=== PATIENT | female | born 1970 | race Caucasian/White ===

== ENCOUNTER 2021-10-30 10:56 | Day surgery (SDC) | payer OTHER ==
[2021-10-27 12:14] LABS: COVID AG,FIA SOURCE NASAL SWAB
[~2021-10-30] VITALS: Ht 165.1 cm; Wt 132.4 kg
[~2021-10-30 10:56] MED LIST: ASCO500 PO; CALC250T2 PO; CELE200 PO; CETI-450 PO; CHOL200059 PO; CYAN500T56 PO; FERR325T27 PO; GABA-1181 PO; MULT-1366 PO; OXYB5TAB20 PO; SODIUM CHLORIDE 0.9% 1,000 ML ONE
[2021-10-30] MEDS ORDERED: SODIUM CHLORIDE 0.9% 1,000 ML IV ONE (11:00)
[2021-10-30] MEDS ORDERED: LIDOCAINE/PF 2% 5 ML VIAL IM ONE (12:00)
[2021-10-30] MEDS ORDERED: PROPOFOL 1% 20 ML VIAL IVP ONE (12:00)
== END 2021-10-30 14:35 | disposition home or self-care (01) ==
LOC: SURGERY 10:56
PROVIDERS: ATTEND Internal Medicine Gastroenterology
DX: D64.9 Anemia, unspecified (principal); K64.0 First degree hemorrhoids; K29.70 Gastritis, unspecified, without bleeding; K31.4 Gastric diverticulum; M19.90 Unspecified osteoarthritis, unspecified site; Z79.899 Other long term (current) drug therapy; G89.29 Other chronic pain; Z90.49 Acquired absence of other specified parts of digestive tract; Z98.84 Bariatric surgery status; E66.01 Morbid (severe) obesity due to excess calories; Z68.42 Body mass index [BMI] 45.0-49.9, adult; Z98.890 Other specified postprocedural states
CPT/HCPCS: 43239; 45378; 87426; 88305; 88312; 88313; C1769; C9803; J2704; J3490; J7030